=== PATIENT | female | born 1965 | race African-American/Black ===

== ENCOUNTER 2019-06-20 16:33 | Emergency (ER) | payer MEDICAID ==
[~2019-06-20] VITALS: Ht 182.9 cm; Wt 149.8 kg
[2019-06-20 18:37] VITALS: BP 122/68
== END 2019-06-20 19:41 | disposition home or self-care (01) ==
LOC: ED 18:14
DX: R10.11 Right upper quadrant pain (principal); R11.2 Nausea with vomiting, unspecified; I50.9 Heart failure, unspecified; F17.200 Nicotine dependence, unspecified, uncomplicated
CPT/HCPCS: 36415; 76700; 80053; 85025; 96372; 99284; J1885

== ENCOUNTER 2020-12-26 16:10 | Emergency (ER) | payer MEDICAID ==
[~2020-12-26] VITALS: Ht 182.9 cm; Wt 149.5 kg
[~2020-12-26 16:10] MED LIST: ALPR0.254 PO; CHOL400T2 PO; CITA10TA4 PO; FERR324T5 PO; FURO80TA77 PO; HYDR25TA6 PO; HYDR50CA2 PO; IBUP-1223 PO; MEDR10TA3 PO; OMEP20TA62 PO; PRAZ2CAP2 PO; RIZA5TAB2 PO; SERT100T32 PO; ZOLP10TA5 PO
--- NOTE | 2020-12-26 16:20 | NUR ---
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
[2020-12-26] MEDS ORDERED: ativan (16:49)
[2020-12-26] MEDS ORDERED: hydroxyzine (16:49)
[2020-12-26] MEDS ORDERED: sertraline (16:49)
[2020-12-26] MEDS ORDERED: minipress (16:50)
[2020-12-26] MEDS ORDERED: [UNRECOGNIZED DRUG - OTHER] (16:53)
[2020-12-26 17:09] LABS: BASOPHILS % (AUTO) 2 % (0-1); EOSINOPHILS % (AUTO) 7 % (1-7); LYMPHOCYTES % (AUTO) 35 % (22-44); MEAN CORPUSCULAR HGB CONC 31.3 g/dL (32.4-35.8); MEAN PLATELET VOLUME 7.1 fL (7.4-10.4); MONOCYTES % (AUTO) 7 % (2-9); NEUTROPHILS % (AUTO) 49 % (42-75); PLATELET COUNT 329 x10^3/uL (130-400); RED BLOOD COUNT 4.55 x10^6/uL (3.82-5.3); RED CELL DISTRIBUTION WIDTH 16.9 % (9.6-15.2)
--- NOTE | 2020-12-26 17:11 | NUR ---
PT REPORTS DIZZINESS TODAY. VS STABLE. ORDER PICKER ON. NSR NOTED. CALL LIGHT IN PLACE. FAMILY AT BEDSIDE. PT HAS BEEN SEEN BY SALBAD[facility] FIORE. WILL CONTINUE TO MONITOR.
[2020-12-26 17:13] LABS: MD NO
[2020-12-26 17:21] LABS: ALANINE AMINOTRANSFERASE 16 U/L (12-78); ALBUMIN 3.1 g/dL (3.4-5.0); ANION GAP 6 mmol/L (5-15); CALCIUM 8.2 mg/dL (8.5-10.1); CHLORIDE 108 mmol/L (98-107); CREATININE 0.86 mg/dL (0.55-1.02)
[2020-12-26] MEDS ORDERED: MECLIZINE CHEWABLE 25 MG TAB ONE (17:22)
[2020-12-26 17:25] LABS: ALKALINE PHOSPHATASE 119 U/L (45-117); BILIRUBIN,TOTAL 0.2 mg/dL (0.2-1.0); TOTAL PROTEIN 7.7 g/dL (6.4-8.2); TROPONIN I < 0.015 ng/mL (0.000-0.045)
[2020-12-26] MEDS ORDERED: MECLIZINE 25 MG TABLET PO ONE (17:30)
--- NOTE | 2020-12-26 18:28 | NUR ---
UA SENT. REPORT GIVEN TO OLI KAISER FOR BREAK
--- NOTE | 2020-12-26 18:36 | NUR ---
TASK RN: RECEIVED REPORT FROM OLI GOLDSTEIN. PT RESTING ON HELENE.
[2020-12-26 18:53] LABS: MICROSCOPIC INDICATED
--- NOTE | 2020-12-26 18:53 | NUR ---
TASK RN: REPORT GIVEN TO RHINA QUINONES RN.
[2020-12-26 19:23] VITALS: BP 133/79
== END 2020-12-26 19:24 | disposition home or self-care (01) ==
LOC: ED 17:39
DX: H81.11 Benign paroxysmal vertigo, right ear (principal); R32 Unspecified urinary incontinence; I50.9 Heart failure, unspecified; R94.31 Abnormal electrocardiogram [ECG] [EKG]; R06.89 Other abnormalities of breathing; J44.9 Chronic obstructive pulmonary disease, unspecified
CPT/HCPCS: 36415; 71045; 80053; 81001; 82962; 83880; 84484; 85025; 93005; 99285